=== PATIENT | female | born 1970 | race Two or more races ===

== ENCOUNTER 2024-09-04 13:22 | Emergency (ER) | payer OTHER, SELFPAY ==
[2024-09-04 13:30] VITALS: BP 144/78
--- NOTE | 2024-09-04 15:18 | ED.MUSCINJ ---
HPI-Injury
General
Chief Complaint: Musculo-Skeletal Complaint
Source: patient
Exam Limitations: none
Time Seen by Provider: 09/04/24 15:02
History of Present Illness-Injury
Initial Injury comments:
53-year-old female history of hypertension presents with 3 to 4 days worth of right sided neck and upper back pain that radiates to the shoulder. It is made worse with motion. She denies any chest pain shortness of breath or pain with breathing.
She states she was lifting drywall for help her finish their bathroom when she thinks she may have hurt it then. Occasionally she has numbness into her hand. She went to an urgent care yesterday and had an adjustment of her back which felt
better. She also took Advil before coming here and states that helped somewhat to. No recent travel or surgery. No other pains at this time
Past History
Past History
ED Past Medical History: Other (migraines)
Phy Exam
Physical Exam
Physical Exam:
General: Well-appearing female no acute respiratory distress
HEENT: Normocephalic atraumatic
Heart: Regular rate and rhythm no murmurs lungs: Clear no wheeze
Musculoskeletal exam: Patient is tender over the midline of the upper thoracic and cervical spine. She is also tender over the right paraspinous area and trapezius muscle of the right side. She has good range of motion passively and actively of
the right shoulder. She has increased pain with rotation of the neck
Neurologic: Alert and oriented good strength to the upper and lower extremity
Injury Course
Orders/Labs/Results
Orders:
Orders
09/04/24 15:17
CR Cervical Spine 2 or 3 Vw Urgent
Comment:
Reason For Exam: neck pain
CR Thoracic Spine 3 Views Urgent
Comment:
Reason For Exam: upper back pain
MDM/Problems Addressed
Differential Diagnosis Includes:
upper back and neck pain. Question radiculopathy versus cervical strain. CTA ordered question degenerative disc disease. X-rays pending
*Critical Care Note
Total Time (30-74mins, 75-104mins- exclusive of procedures): Not Applicable
Update Note
Update Note:
X-rays thoracic and cervical spine negative for acute finding. Recommend continue warm compresses muscle relaxers and anti-inflammatories. Stable for discharge
ED Attending Note
-
Portions of this chart may have been created with voice recognition software.� Occasional wrong word or��sound alike� substitutions may have occurred due to the inherent limitations of voice recognition software.
Discharge Plan
Departure
Patient Disposition: Home (Routine Discharge)
Date of Disposition: 09/04/24
Time of Disposition: 16:22
Patient with high blood pressure during this ER visit?: No
Discharge Problem:
Cervical strain
Instructions: Muscle and Bone Pain (DC)
Prescriptions:
New
methocarbamol 750 mg tablet
750 mg PO TID PRN (Reason: spasm) Qty: 10 0RF
ibuprofen 600 mg tablet
600 mg PO TID PRN (Reason: Pain) Qty: 14 0RF
No Action
carvedilol [Coreg] 12.5 MG tablet
12.5 mg PO DAILY Qty: 30 0RF
Referrals:
Alice Starks, DO [Family Provider] -
Activity Restrictions/Additional Instructions:
Rest. Continue with warm compresses. Use anti-inflammatories and muscle relaxers as prescribed. Return if worse otherwise follow-up with your doctor
Interventions
Interventions:
*Risk Screen - Suicide Last Done: 09/04/24 13:30
*General Assessment Last Done: 09/04/24 14:31
*Neglect/Abuse Screening Last Done: 09/04/24 13:30
ED- Fall Risk Assessment Last Done: 09/04/24 14:28
ED-Musculoskeletal Assessment Last Done: 09/04/24 14:28
Discharge Date and Time
Print Language: CROATIAN
[2024-09-04 16:33] VITALS: BP 132/73
== END 2024-09-04 16:38 | disposition home or self-care (01) ==
LOC: EMR 13:22
PROVIDERS: EMERGENCY PHYSICIAN Emergency Medicine; FAMILY PHYSICIAN Family Medicine
DX: S16.1XXA Strain of muscle, fascia and tendon at neck level, initial encounter (principal); X50.0XXA Overexertion from strenuous movement or load, initial encounter; I10 Essential (primary) hypertension
CPT/HCPCS: 99283; 72040; 72072